=== PATIENT | female | born 1970 | race Two or more races ===

== ENCOUNTER → 2017-10-29 | Outpatient (CLI) | payer OTHER ==
--- NOTE | 2017-10-30 07:56 | MM ---
Reason for exam: clinical finding. Last mammogram was performed 3 years and 9 months ago. History: Took hormonal contraceptives for 5 years beginning at age 22. Indicated problem(s): pain in both breasts. Physical Findings: Nurse did not find any significant physical abnormalities on exam. MG Diagnostic Mammo w CAD JALEN Bilateral CC and MLO view(s) were taken. Prior study comparison: January 28, 2014, bilateral MG diagnostic mammo w CAD JALEN. April 18, 2011, bilateral digital screening mammo w/CAD. The breast tissue is heterogeneously dense. This may lower the sensitivity of mammography. Finding: There are typically benign round calcifications in both breasts. There is no discrete abnormality. These results were verbally communicated with the patient and result sheet given to the patient on 10/29/17. ASSESSMENT: Incomplete: need additional imaging evaluation, BI-RAD 0 RECOMMENDATION: Ultrasound of both breasts. (palpables)
--- NOTE | 2017-10-30 08:02 | USB ---
Reason for exam: additional evaluation requested from abnormal screening. History: Took hormonal contraceptives for 5 years beginning at age 22. US Breast BILAT Right complete breast ultrasound includes all four quadrants, the retroareolar region and axilla. Finding demonstrates a 0.6 x 0.5 x 0.4cm oval, cystic lesion at 12 o'clock, a 0.4 x 0.5 x 0.3cm oval, cystic lesion at 1 o'clock, a 0.3 x 0.2 x 0.3cm oval lesion too small to characterize at 3 o'clock, a 0.4 x 0.5 x 0.3cm oval, cystic lesion at 4 o'clock, a 0.7 x 0.6 x 0.5cm oval, complex, cystic lesion at 5 o'clock, a 0.2 x 0.3 x 0.2cm oval, cystic cluster at 6 o'clock, a 0.6 x 0.4 x 0.3cm oval, cystic cluster at 7 o'clock, a 0.6 x 0.4 x 0.4cm oval, cystic lesion at 8 o'clock, a 0.9 x 0.9 x 0.7cm oval, cystic lesion at 10 o'clock and a 2.1 x 1.9 x 1.3cm oval, cystic lesion at 9 o'clock. Left complete breast ultrasound includes all four quadrants, the retroareolar region and axilla. Finding demonstrates a 0.4 x 0.4 x 0.4cm oval, cystic lesion at 1 o'clock, a 1.0 x 1.1 x 0.6cm oval, cystic cluster at 2 o'clock, a 0.9 x 0.9 x 0.7cm oval, cystic lesion at 3 o'clock, a 0.4 x 0.8 x 0.3cm oval, mixed lesion at 6 o'clock, a 1.3 x 1.0 x 0.6cm oval, cystic complex lesion at 11 o'clock and a 1.0 x 0.9 x 0.5cm oval, mixed lesion at 9 o'clock. Presumed overall fibrocystic change. These results were verbally communicated with the patient and result sheet given to the patient on 10/29/17. ASSESSMENT: Benign, BI-RAD 2 RECOMMENDATION: Routine screening mammogram of both breasts in 1 year.
== END | disposition home or self-care (01) ==
LOC: RADMAMWWP 14:07
PROVIDERS: ATTEND Family Medicine
DX: N60.09 Solitary cyst of unspecified breast (principal)
CPT/HCPCS: 77066

== ENCOUNTER → 2019-02-14 | Outpatient (CLI) | payer OTHER ==
--- NOTE | 2019-02-17 10:28 | MM ---
Reason for exam: screening (asymptomatic). Last mammogram was performed 1 year and 4 months ago. History: Took hormonal contraceptives for 5 years beginning at age 22. Physical Findings: A clinical breast exam by your physician is recommended on an annual basis and results should be correlated with mammographic findings. MG 3D Screening Mammo W/Cad Bilateral CC and MLO view(s) were taken. Prior study comparison: October 29, 2017, bilateral MG diagnostic mammo w CAD JALEN. January 28, 2014, bilateral MG diagnostic mammo w CAD JALEN. The breast tissue is extremely dense which could obscure a lesion on mammography. There are multiple right masses increased in size and are new left upper outer quadrant middle depth focal asymmetry. ASSESSMENT: Incomplete: need additional imaging evaluation, BI-RAD 0 RECOMMENDATION: Ultrasound of both breasts. [facility] will attempt to contact patient to return for ultrasound.
== END | disposition home or self-care (01) ==
LOC: RADMAMWWP 11:00
PROVIDERS: ATTEND Family Medicine
DX: Z12.31 Encounter for screening mammogram for malignant neoplasm of breast (principal)
CPT/HCPCS: 77063; 77067

== ENCOUNTER → 2019-02-28 | Outpatient (CLI) | payer OTHER ==
--- NOTE | 2019-03-03 08:46 | USB ---
Reason for exam: additional evaluation requested from abnormal screening. History: Took hormonal contraceptives for 5 years beginning at age 22. Physical Findings: Nurse Summary: multicystic bilaterally, prominent and movable cystic lump left breast 12 o'clock 2cm cluster (nurse mj). US Breast Workup Limited JALEN Right complete breast ultrasound includes all four quadrants, the retroareolar region and axilla. Finding demonstrates a 0.4 x 0.5 x 0.3cm oval, cluster, complex, cystic lesion at 3 o'clock, stable for 1 year 4 months, benign, a 0.6 x 0.5 x 0.6cm oval, complex, cystic lesion at 5 o'clock versus 7 x 6 x 5mm previously, possibly complicated cyst, stable, a 0.4 x 0.4 x 0.4cm oval, complex, cystic, stable lesion at 7 o'clock, a 1.1 x 0.9 x 0.6cm oval, cystic lesion at 8 o'clock, a 0.7 x 0.6 x 0.6cm oval, cystic lesion at 9 o'clock, a 0.7 x 0.5 x 0.4cm oval, cystic, complicated lesion at 10 o'clock and a 1.0 x 1.7 x 0.6cm oval axilla nodes, thin cortex with benign fatty hilum. Left limited breast ultrasound including focal area of concern, retroareolar and axilla demonstrates a 1.0 x 1.9 x 0.7cm oval, complex lesion at 12 o'clock BB versus complicated cyst, at the palpable, 3 month follow up recommended, a 0.4 x 0.5 x 0.3cm oval, cystic lesion at 2 o'clock, a 0.8 x 0.5 x 0.5cm oval, cystic cluster at 3 o'clock and a 1.0 x 1.0 x 0.6cm oval, cystic cluster at 3 o'clock. Left breast scanned 12-3 o'clock. These results were verbally communicated with the patient and result sheet given to the patient on 02/28/19. ASSESSMENT: Probably benign, BI-RAD 3 RECOMMENDATION: Follow-up diagnostic mammogram and ultrasound of the left breast in 3 months. (attention 12 o'clock)
== END | disposition home or self-care (01) ==
LOC: RADUSWWP 14:19
PROVIDERS: ATTEND Family Medicine
DX: R92.8 Other abnormal and inconclusive findings on diagnostic imaging of breast (principal)

== ENCOUNTER → 2019-06-13 | Outpatient (CLI) | payer OTHER ==
--- NOTE | 2019-06-13 10:21 | MM ---
Reason for exam: follow-up at short interval from prior study. Last mammogram was performed 4 months ago. History: Took hormonal contraceptives for 5 years beginning at age 22. Physical Findings: Nurse Summary: 2cm nodule in the left breast at 12 o'clock (nurse mj). MG 3D Diag Mammo W/Cad LT CC and MLO view(s) were taken of the left breast. Prior study comparison: February 14, 2019, bilateral MG 3d screening mammo w/cad. October 29, 2017, bilateral MG diagnostic mammo w CAD JALEN. The breast tissue is heterogeneously dense. This may lower the sensitivity of mammography. There is no discrete abnormality including area of concern marked by BB. No significant new findings when compared with previous films. These results were verbally communicated with the patient and result sheet given to the patient on 06/13/19. ASSESSMENT: Benign, BI-RAD 2 RECOMMENDATION: Return to routine screening mammogram schedule for both breasts. Back on schedule for January 2020.
--- NOTE | 2019-06-13 10:23 | USB ---
Reason for exam: follow-up at short interval from prior study. History: Took hormonal contraceptives for 5 years beginning at age 22. US Breast LT Left complete breast ultrasound includes all four quadrants, the retroareolar region and axilla. Finding demonstrates a 0.8 x 0.4 x 0.4cm cystic lesion at 3 o'clock, a 0.3 x 0.3 x 0.3cm lesion too small to characterize at 4 o'clock and a 0.5 x 0.2 x 0.4cm oval, cystic lesion at 10 o'clock. These results were verbally communicated with the patient and result sheet given to the patient on 06/13/19. ASSESSMENT: Benign, BI-RAD 2 RECOMMENDATION: Return to routine screening mammogram schedule for both breasts. Back on schedule for January 2020.
== END | disposition home or self-care (01) ==
LOC: RADMAMWWP 08:25
PROVIDERS: ATTEND Family Medicine
DX: R92.8 Other abnormal and inconclusive findings on diagnostic imaging of breast (principal)
CPT/HCPCS: 77061; 77065

== ENCOUNTER → 2021-02-16 | Outpatient (CLI) | payer OTHER ==
--- NOTE | 2021-02-16 14:00 | EST ---
EXERCISE STRESS AGE: 50 SEX: F HT: 5'5" WT: 180 lbs. PROTOCOL: Cardiolite Truong STAGE: 2 DURATION OF EXERCISE: 6:30 HEART RATE REST: 80 BLOOD PRESSURE REST: 163/90 MAXIMUM HEART RATE ACHIEVED: 174 MAXIMUM BLOOD PRESSURE: 205/94 85% MPHR: 144 100% MPHR: 169 METS: 7.9 INDICATIONS: Abnormal EKG CLINICAL INFORMATION: Baseline EKG revealed normal sinus rhythm with inferolateral ST-T abnormality which could be repolarization abnormality. Patient walked on a standard Truong protocol for a total duration of 6 minutes 30 seconds, achieved a maximal heart rate of 166 beats per minute, developed fatigue and shortness of breath but did not have angina. EKG remained inconclusive. There was no arrhythmia. By EKG criteria, this is an inconclusive stress test because of resting EKG changes. Patient did not have angina or arrhythmia. The nuclear scan results, which are more pertinent, will be reported by the radiologist. MMKERVIN / ANNN: [id number] /
--- NOTE | 2021-02-16 15:42 | NM ---
EXAMINATION TYPE: NM stress cardiolite complete DATE OF EXAM: 02/16/2021 COMPARISON: NONE HISTORY: R 94.31 TECHNIQUE: After the intravenous administration of 9.1 mCi Tc 99m Sestamibi - Rest images obtained 4 5 minutes post injection. The patient exercised using a KIERSTEN protocol and 1 minute prior to peak e xercise was injected with 25.2 mCi Tc 99m Sestamibi - Stress images obtained 10 minutes post injectio n. FINDINGS: Targeted heart rate was achieved during performance of the study. Review of stress and rest SPECT concepción ges demonstrates mild decreased uptake of the radiopharmaceutical along the anterior wall left ventri catie on stress as compared to rest images. Gated analysis shows normal wall motion with an estimated left ventricular ejection fraction of 64 %. IMPRESSION: Stress induced left ventricular myocardial ischemia is suggested, consider echocardiographic correlat ion for elevated ejection fraction A Yellow level critical message alert has been initiated for Jennifer Lira DO via the [employer] Critical Results System on 02/16/2021 3:39 PM. This message alert has been sent to Jennifer zhou DO via the preferences provided by the clinician for the receipt of Radiology Critical Findings. Message ID [id number].
== END | disposition home or self-care (01) ==
LOC: RADNMMAIN 07:58
PROVIDERS: ATTEND Family Medicine
DX: R94.31 Abnormal electrocardiogram [ECG] [EKG] (principal)
CPT/HCPCS: 93017; 78452; A9500

== ENCOUNTER → 2021-02-16 | Outpatient (CLI) | payer OTHER ==
--- NOTE | 2021-02-21 11:20 | MM ---
Reason for exam: screening (asymptomatic). Last mammogram was performed 1 year and 8 months ago. History: Took hormonal contraceptives for 5 years beginning at age 22. Physical Findings: A clinical breast exam by your physician is recommended on an annual basis and results should be correlated with mammographic findings. MG 3D Screening Mammo W/Cad Bilateral CC and MLO view(s) were taken. Prior study comparison: June 13, 2019, left breast MG 3d diag mammo w/cad LT. February 28, 2019, bilateral US breast workup limited JALEN. October 29, 2017, bilateral MG diagnostic mammo w CAD JALEN. January 28, 2014, bilateral MG diagnostic mammo w CAD JALEN. The breast tissue is heterogeneously dense. This may lower the sensitivity of mammography. No significant changes when compared with prior studies. ASSESSMENT: Negative, BI-RAD 1 RECOMMENDATION: Routine screening mammogram of both breasts in 1 year. Patient should continue monthly self breast exams. A negative report should not preclude additional follow up of suspicious palpable abnormalities.
== END | disposition home or self-care (01) ==
LOC: RADMAMWWP 11:28
PROVIDERS: ATTEND Family Medicine
DX: Z12.31 Encounter for screening mammogram for malignant neoplasm of breast (principal); Z79.3 Long term (current) use of hormonal contraceptives
CPT/HCPCS: 77063; 77067

== ENCOUNTER 2021-02-17 07:50 | Day surgery (SDC) | payer OTHER ==
[2021-02-14 09:44] VITALS: BMI 29.0
[~2021-02-17 07:50] MED LIST: LACTATED RINGERS 1,000 ML IV SCH
[2021-02-17 08:17] VITALS: TEMP 97.8
[2021-02-17] MEDS ORDERED: LACTATED RINGERS 1,000 ML IV ONE (08:19)
[2021-02-17] MEDS ORDERED: PROPOFOL 10 MG/ML 20 ML VIAL IV ONE (09:02)
[2021-02-17] MEDS ORDERED: LIDOCAINE 1% INJ 10MG/ML (20 ML MDV) ONE (09:02)
--- NOTE | 2021-02-17 09:07 | P.GSHP ---
History of Present Illness H&P Date: 02/17/21 Chief Complaint: Screening colonoscopy Is a 50-year-old female who presents today for screening colonoscopy. Patient has had some issues with change in bowel habits with diarrhea and anal incontinence. Past Medical History Past Medical History: Asthma Additional Past Medical History / Comment(s): Seasonal allergies, cysts in her breasts bilat. History of Any Multi-Drug Resistant Organisms: None Reported Past Surgical History: Cholecystectomy Past Anesthesia/Blood Transfusion Reactions: No Reported Reaction Smoking Status: Never smoker - Past Family History Mother Family Medical History: No Reported History Brother(s) Family Medical History: Cancer Medications and Allergies Home Medications Medication Instructions Recorded Confirmed Type Albuterol Inhaler [Ventolin Hfa 1 puff INHALATION RT-TID PRN 02/14/21 02/14/21 History Inhaler] Estrogen(Over The Counter) 1 tab PO DAILY 02/14/21 02/14/21 History Multivitamins, Thera [Multivitamin 1 tab PO DAILY 02/14/21 02/14/21 History (formulary)] Turmeric Root Extract [Turmeric] 500 mg PO DAILY 02/14/21 02/14/21 History diphenhydrAMINE [Benadryl] 25 mg PO HS PRN 02/14/21 02/14/21 History Allergies Allergy/AdvReac Type Severity Reaction Status Date / Time No Known Allergies Allergy Verified 02/14/21 09:23 Surgical - Exam Vital Signs Temp Pulse Resp BP Pulse Ox 97.8 F 80 18 159/83 100 02/17/21 08:16 02/17/21 08:16 02/17/21 08:16 02/17/21 08:16 02/17/21 08:16 - General well developed, well nourished, no distress - Eyes PERRL - ENT normal pinna - Neck no masses - Respiratory normal expansion - Cardiovascular Rhythm: regular - Abdomen Abdomen: soft, non tender Assessment and Plan Assessment: Diarrhea, anal incontinence. We'll perform screening colonoscopy
--- NOTE | 2021-02-17 09:19 | P.OP ---
Date of Procedure: 02/17/21 Preoperative Diagnosis: Screening colonoscopy Postoperative Diagnosis: Normal colon Procedure(s) Performed: Colonoscopy Anesthesia: MAC Surgeon: King Smith Pathology: none sent Condition: stable Disposition: PACU Description of Procedure: Nor PROCEDURE: The patient was placed on the endoscopy table in the lateral position. Digital rectal examination was performed which revealed no abnormalities. es. Flexible colonoscope was then placed in the patient's anus and passed throughout the entire colon. The ileocecal valve was visualized. The cecum, ascending, transverse, descending and sigmoid colon were normal. The rectum was normal as well. There were no masses, polyps or diverticula noted in the entire colon. SUMMARY OF FINDINGS: Normal colonoscopy.
[2021-02-17 09:41] VITALS: BP 144/85; PULSE 66; RESP 16
== END 2021-02-17 10:30 | disposition home or self-care (01) ==
LOC: ORWHC2ENDO 07:50
PROVIDERS: ATTEND Surgery
DX: Z12.11 Encounter for screening for malignant neoplasm of colon (principal); J45.909 Unspecified asthma, uncomplicated; Z80.9 Family history of malignant neoplasm, unspecified
CPT/HCPCS: 81025; 45378; J2001; J2704

== ENCOUNTER → 2021-02-23 | Outpatient (CLI) | payer OTHER ==
[2021-02-23 16:01] LABS: HCT 36.9 % (34.0-46.0); MCHC 35.2 g/dL (31.0-37.0); MCV 93.9 fL (80.0-100.0); Mean Platelet Volume 9.5; Platelet Count 203 k/uL (150-450); RBC 3.93 m/uL (3.80-5.40); RDW 13.4 % (11.5-15.5); WBC 7.5 k/uL (3.8-10.6)
[2021-02-23 16:10] LABS: African American GFR (CKD) >90 (>60 ml/min/1.73 sqM); Anion Gap 7 mmol/L; Blood Urea Nitrogen 7 mg/dL (7-17); Carbon Dioxide 26 mmol/L (22-30); Chloride 106 mmol/L (98-107); Non-African American GFR(CKD) >90 (>60 ml/min/1.73 sqM); Sodium 139 mmol/L (137-145)
== END | disposition home or self-care (01) ==
LOC: LABPAT 15:26
PROVIDERS: ATTEND Internal Medicine Cardiovascular Disease
DX: Z01.812 Encounter for preprocedural laboratory examination (principal); R07.9 Chest pain, unspecified
CPT/HCPCS: 36415; 80051; 82565; 84520; 85027

== ENCOUNTER → 2021-03-01 | Outpatient (CLI) | payer OTHER ==
--- NOTE | 2021-03-01 17:42 | ECHOF ---
Referral Reason:R94.31 MEASUREMENTS -------- HEIGHT: 165.1 cm WEIGHT: 83.9 kg BP: RVIDd: 3.3 cm (< 3.3) IVSd: 1.1 cm (0.6 - 1.1) LVIDd: 3.4 cm (3.9 - 5.3) LVPWd: 1.1 cm (0.6 - 1.1) IVSs: 1.3 cm LVIDs: 2.5 cm LVPWs: 1.6 cm LAESV Index (A-L): 28.53 ml/m Ao Diam: 3.3 cm (2.0 - 3.7) AV Cusp: 1.7 cm (1.5 - 2.6) LA Diam: 2.7 cm (2.7 - 3.8) MV EXCURSION: 11.236 mm (> 18.000) MV EF SLOPE: 100 mm/s (70 - 150) EPSS: 0.3 cm MV E Paul: 0.85 m/s MV DecT: 124 ms MV A Paul: 1.12 m/s MV E/A Ratio: 0.76 RAP: 5.00 mmHg RVSP: 24.76 mmHg FINDINGS -------- Sinus rhythm. This was a technically adequate study. The left ventricular size is normal. There is borderline concentric left ventricular hypertrophy. Overall left ventricular systolic function is normal with, an EF between 55 - 60 %. The diastolic filling pattern is normal for the age of the patient 10.56. The right ventricle is mildly enlarged. Normal LA size by volume 22+/-6 ml/m2. The right atrial size is normal. Interatrial and interventricular septum intact. The aortic valve is trileaflet and appears structurally normal. There is no evidence of aortic regu rgitation. There is no evidence of aortic stenosis. Mild mitral regurgitation is present. Mild tricuspid regurgitation present. There is no evidence of pulmonary hypertension. The right v entricular systolic pressure, as measured by Doppler, is 24.76mmHg. There is no pulmonic regurgitation present. The aortic root size is normal. Normal inferior vena cava with normal inspiratory collapse consistent with estimated right atrial pre ssure of 5 mmHg. There is no pericardial effusion. CONCLUSIONS -------- 1. The left ventricular size is normal. 2. There is borderline concentric left ventricular hypertrophy. 3. Overall left ventricular systolic function is normal with, an EF between 55 - 60 %. 4. The diastolic filling pattern is normal for the age of the patient 10.56 5. The right ventricle is mildly enlarged. 6. Mild mitral regurgitation is present. 7. Mild tricuspid regurgitation present. ACCOUNTING MACHINE OPERATOR: Yara Meza RDCS
== END | disposition home or self-care (01) ==
LOC: RADECHMAIN 13:52
PROVIDERS: ATTEND Family Medicine
DX: I08.1 Rheumatic disorders of both mitral and tricuspid valves (principal)
CPT/HCPCS: 93306

== ENCOUNTER 2021-03-08 10:34 | Day surgery (SDC) | payer OTHER ==
[2021-03-04 13:29] VITALS: BMI 29.9
[~2021-03-08 10:34] MED LIST changes: +ALPRAZolam 0.25 MG TAB PO PRN; +ALPRAZolam 0.5 MG TAB PO PRN; +ASPIRIN 325 MG TAB PO ONE; +ATORVASTATIN 80 MG TAB PO ONE; -LACTATED RINGERS 1,000 ML IV SCH; +NITROGLYCERIN SL TABS 0.4 MG TAB SUBLINGUAL PRN; +SODIUM CHLORIDE 0.9% 1,000 ML in EMPTY BAG 1 BAG IV ONE
[2021-03-08 11:20] VITALS: RESP 18; TEMP 98.3
[2021-03-08] MEDS ORDERED: fentaNYL (PF) 50 MCG/ML 2 ML AMP ONE (11:39)
[2021-03-08] MEDS ORDERED: LIDOCAINE 1% INJ 10MG/ML (20 ML MDV) ONE (11:39)
[2021-03-08] MEDS ORDERED: fentaNYL (PF) 50 MCG/ML 2 ML AMP IV ONE (11:54)
[2021-03-08] MEDS ORDERED: MIDAZOLAM 2 MG/2 ML VIAL IV ONE (11:54)
[2021-03-08] MEDS ORDERED: LIDOCAINE 1% INJ 10MG/ML (20 ML MDV) SQ ONE (11:55)
[2021-03-08] MEDS ORDERED: IOPAMIDOL-370 125ML BTL INJ ONE (12:05)
--- NOTE | 2021-03-08 12:53 | CC ---
CARDIAC CATHETERIZATION REPORT INDICATION: Abnormal stress test. PROCEDURE NOTE: After obtaining informed consent, left heart catheterization and coronary angiogram were performed via the right femoral artery using standard Antonio catheters. Patient tolerated the procedure well without any obvious immediate complications. The femoral angiogram was performed and Angio-Seal will be deployed for hemostasis. Patient received moderate conscious sedation. Total sedation time was 13 minutes. FINDINGS: HEMODYNAMICS: Left ventricular end-diastolic pressure is 10 mm. There is no significant gradient across the aortic valve. LEFT VENTRICULOGRAM: Left ventriculogram was not performed. ANGIOGRAPHIC DATA: Left main coronary artery. Left main coronary artery is a normal-sized vessel and is free of stenosis. It divides into left anterior descending coronary artery and circumflex coronary artery. Circumflex coronary artery is a nondominant vessel and is free of significant disease. LAD shows a mild atherosclerotic plaque in its mid portion without focal hemodynamically significant lesion. Right coronary artery is a large dominant vessel and is free of significant disease. CONCLUSIONS: Mild nonobstructive coronary artery disease involving LAD. PLAN: Patient's management is in the form of risk factor modification and optimal medical therapy. Her stress test is probably a false-positive stress test. MMODL / IJN: [id number] /
[2021-03-08 16:23] VITALS: BP 150/78
[2021-03-08 16:26] VITALS: PULSE 64
== END 2021-03-08 16:44 | disposition home or self-care (01) ==
LOC: CATHCVL 10:34
PROVIDERS: ATTEND Internal Medicine Cardiovascular Disease
DX: R94.39 Abnormal result of other cardiovascular function study (principal)
CPT/HCPCS: 93458; 87635; C1769 ×2; C1760; C1894; J2250; J2001; J3010; Q9967

== ENCOUNTER → 2022-03-03 | Outpatient (CLI) | payer OTHER ==
--- NOTE | 2022-03-10 18:01 | MM ---
Reason for Exam: Screening (asymptomatic). Last mammogram was performed 1 year(s) and 1 month(s) ago. Patient History: Menarche at age 12. First Full-Term at age 20. Hormonal Contraceptives for 5 years from age 22 until age 27. Risk Values: Deya 5 year model risk: 0.9%. NCI Lifetime model risk: 7.8%. Prior Study Comparison: 02/14/2019 Bilateral Screening Mammogram, [facility]. 06/13/2019 Left Diagnostic Mammogram, [facility]. 02/16/2021 Bilateral Screening Mammogram, [facility]. Tissue Density: The breast tissue is extremely dense which could obscure a lesion on mammography. Findings: Analyzed By CAD. There is no suspicious group of microcalcifications or new suspicious mass in either breast. Overall Assessment: Negative, BI-RAD 1 Management: Screening Mammogram of both breasts in 1 year. A clinical breast exam by your physician is recommended on an annual basis and results should be correlated with mammographic findings. Electronically signed and approved by: Dexter Frias DO
== END | disposition home or self-care (01) ==
LOC: RADMAMWWP 11:54
PROVIDERS: ATTEND Family Medicine
DX: Z12.31 Encounter for screening mammogram for malignant neoplasm of breast (principal)
CPT/HCPCS: 77063; 77067

== ENCOUNTER → 2023-10-29 | Outpatient (CLI) | payer OTHER ==
--- NOTE | 2023-10-30 09:10 | MM ---
Reason for Exam: Screening (asymptomatic). Last mammogram was performed 1 year(s) and 8 month(s) ago. Patient History: Menarche at age 12. First Full-Term at age 20. Hormonal Contraceptives for 5 years from age 22 until age 27. Risk Values: Deya 5 year model risk: 1.0%. NCI Lifetime model risk: 7.7%. Prior Study Comparison: 06/13/2019 Left Diagnostic Mammogram, [facility]. 02/16/2021 Bilateral Screening Mammogram, [facility]. 03/03/2022 Bilateral MG 3D screening mammo w/cad, [facility]. Tissue Density: The breasts are extremely dense, which lowers the sensitivity of mammography. Findings: Analyzed By CAD. There is a small grouped calcifications in the upper outer quadrant of the left breast for which spot magnification views are recommended. There is a nodule measuring approximately 7 mm with obscured margins in the upper margin of the right breast for which spot compression views are recommended. Overall Assessment: Incomplete: need additional imaging evaluation, BI-RAD 0 Management: Diagnostic Mammogram of both breasts. . Patient should continue monthly self-breast exams. A clinical breast exam by your physician is recommended on an annual basis. This exam should not preclude additional follow-up of suspicious palpable abnormalities. Note on Deya scores and lifetime risk: 1. A Deya score greater than 3% is considered moderate risk. If this is the case, consider specialist referral to assess eligibility for a risk reducing agent. 2. If overall lifetime risk for the development of breast cancer is 20% or higher, the patient may qualify for future screening with alternating mammogram and breast MRI. Electronically signed and approved by: Paul Zapien M.D. Radiologis
== END | disposition home or self-care (01) ==
LOC: RADMAMWWP 11:06
PROVIDERS: ATTEND Family Medicine
DX: Z12.31 Encounter for screening mammogram for malignant neoplasm of breast (principal)
CPT/HCPCS: 77063; 77067

== ENCOUNTER → 2023-11-01 | Outpatient (CLI) | payer OTHER ==
--- NOTE | 2023-11-01 11:00 | MM ---
Reason for Exam: Additional evaluation requested from abnormal screening. Last screening mammogram was performed less than 1 month ago. Patient History: Menarche at age 12. First Full-Term at age 20. Hormonal Contraceptives for 5 years from age 22 until age 27. Risk Values: Deya 5 year model risk: 1.0%. NCI Lifetime model risk: 7.7%. Prior Study Comparison: 03/03/2022 Bilateral MG 3D screening mammo w/cad, [facility]. 10/29/2023 Bilateral MG 3D screening mammo w/cad, [facility]. Tissue Density: The breasts are heterogeneously dense, which may obscure small masses. Findings: Analyzed By CAD. 3:00 left breast microcalcifications appear less pronounced on magnification views. There may be a couple punctate calcifications here. Short interval follow-up recommended to exclude any progressively increasing calcifications. Chronic nodularity right breast on the MLO view along the retroareolar plane anterior to middle depth. The questioned area of superior asymmetric density shows no persisting abnormality on 3-D lateral or spot 3-D CC MLO images. Overall Assessment: Probably benign, BI-RAD 3 Management: Diagnostic Mammogram of the left breast in 6 months. . Results were given to the patient verbally at the time of exam. Patient should continue monthly self-breast exams. A clinical breast exam by your physician is recommended on an annual basis. This exam should not preclude additional follow-up of suspicious palpable abnormalities. Note on Deya scores and lifetime risk: 1. A Deya score greater than 3% is considered moderate risk. If this is the case, consider specialist referral to assess eligibility for a risk reducing agent. 2. If overall lifetime risk for the development of breast cancer is 20% or higher, the patient may qualify for future screening with alternating mammogram and breast MRI. Electronically signed and approved by: Aaliyah Rivas M.D. Radiologist
== END | disposition home or self-care (01) ==
LOC: RADMAMWWP 10:32
PROVIDERS: ATTEND Family Medicine
DX: R92.333 Mammographic heterogeneous density, bilateral breasts (principal); R92.0 Mammographic microcalcification found on diagnostic imaging of breast
CPT/HCPCS: 77062; 77066